=== PATIENT | female | born 1980 | race Caucasian/White ===

== ENCOUNTER 2020-09-15 15:14 | Outpatient (RCR) | payer OTHER, SELFPAY ==
[2016-12-05 07:16] VITALS: BMI 29.8
== END 2020-10-20 23:59 ==
LOC: IMMUN 15:14
PROVIDERS: PCP Family Medicine; Referring Provider Family Medicine; Visit Provider Family Medicine
DX: Z23 Encounter for immunization (principal)
CPT/HCPCS: 0001A; 0002A; 91300